=== PATIENT | female | born 1965 | race African-American/Black ===

== ENCOUNTER 2017-01-06 18:29 | Emergency (ER) | payer OTHER ==
[2017-01-06] MEDS ORDERED: CLONIDINE HCL 0.1 MG TABLET PO ONE (19:32)
[2017-01-06] MEDS ORDERED: LIDOCAINE 5% (700 MG) TRANSDERMAL ADH..PATCH TP ONE (19:32)
[2017-01-06] MEDS ORDERED: ACETAMINOPHEN 325 MG TABLET PO ONE (19:35)
--- NOTE | 2017-01-06 19:35 | ER Document Report ---
HPI - HPI Patient complains to provider of: r shoulder pain Onset: Other - 3 days Onset/Duration: Persistent Quality of pain: Sharp Pain Level: 5 Context: Patient presents complaining of right shoulder joint pain. Patient states that she has arthritis affecting this joint but she has had a flareup of pain over the past 3 days. Patient denies any shoulder injury. Patient additionally complains of mild headache that started yesterday. Patient denies any fever or head injury. Does have a history of hypertension and states that she has not been taking her medication recently. Pt denies any chest pain, dyspnea, back pain or urinary symptoms. Pt attributes her elevated blood pressure due to her shoulder joint pain. Patient states that she was told she would need surgery for her shoulder but she has not been able to miss work. Associated Symptoms: Headache, Other - shoulder pain. denies: Nonproductive cough, Productive cough Exacerbated by: Movement Relieved by: Denies Similar symptoms previously: Yes Recently seen / treated by doctor: No - ROS ROS below otherwise negative: Yes Systems Reviewed and Negative: Yes All other systems reviewed and negative - CONSTITUTIONAL Constitutional: DENIES: Fever, Chills - NEURO Neurology: REPORTS: Headache. DENIES: Weakness, Vision blurred - CARDIOVASCULAR Cardiovascular: DENIES: Chest pain - RESPIRATORY Respiratory: DENIES: Trouble Breathing, Coughing - GASTROINTESTINAL Gastrointestinal: DENIES: Abdominal Pain, Patient vomiting - MUSCULOSKELETAL Musculoskeletal: REPORTS: Extremity pain. DENIES: Back Pain, Neck Pain - DERM Skin Color: Normal Skin Problems: None Past Medical History - General Information source: Patient - Social History Smoking Status: Never Smoker Chew tobacco use (# tins/day): No Frequency of alcohol use: None Drug Abuse: None Occupation: [employer] Lives with: Alone Family History: Reviewed & Not Pertinent Patient has suicidal ideation: No Patient has homicidal ideation: No - Past Medical History Cardiac Medical History: Reports: Hx Hypertension Renal/ Medical History: Denies: Hx Peritoneal Dialysis Past Surgical History: Reports: Hx Section, Hx Gynecologic Surgery Vertical Provider Document - CONSTITUTIONAL Agree With Documented VS: Yes Exam Limitations: No Limitations General Appearance: WD/WN, No Apparent Distress - INFECTION CONTROL TRAVEL OUTSIDE OF THE [place] IN LAST 30 DAYS: No - HEENT HEENT: Atraumatic, Normocephalic, PERRLA - NECK Neck: Normal Inspection, Supple. negative: Lymphadenopathy-Left, Lymphadenopathy-Right - RESPIRATORY Respiratory: Breath Sounds Normal, No Respiratory Distress, Chest Non-Tender O2 Sat by Pulse Oximetry: 98 - CARDIOVASCULAR Cardiovascular: Regular Rate, Regular Rhythm, No Murmur Pulses: Normal: Radial - BACK Back: Abnormal Inspection - right Trapezius muscle tenderness with spasm. negative: CVA Tenderness-Right, CVA Tenderness-Left - MUSCULOSKELETAL/EXTREMETIES Musculoskeletal/Extremeties: MAEW, Tender - Right shoulder joint tenderness with passive range of motion, patient with crepitus with movement of right shoulder joint normal skin color and temperature overlying joint. No deformity or dislocation, No Edema - NEURO Level of Consciousness: Awake, Alert, Appropriate Motor/Sensory: No Motor Deficit - DERM Integumentary: Warm, Dry, No Rash Course - Re-evaluation Re-evalutation: 01/06/17 19:[address] Brown patient presentation and exam findings. Does not recommend that patient should have a CT of the head if patient is otherwise neurologically intact. Recommends pain management and good education and advising patient that to restart her blood pressure medication and recheck with her primary doctor for further evaluation. 01/06/17 20:38 Patient educated at length about importance of managing her high blood pressure. Patient advised that untreated blood pressure can lead to stroke, loss of vision, renal failure, even . Patient verbalized understanding and states that she plans to restart taking her blood pressure medication. - Vital Signs Vital signs: Temp Pulse Resp BP Pulse Ox 98.7 F 63 16 200/96 H 98 01/06/17 18:57 01/06/17 18:57 01/06/17 18:57 01/06/17 18:57 01/06/17 18:57 - Laboratory Result Diagrams: 01/06/17 19:40 01/06/17 19:40 Laboratory results interpreted by me: 01/06/17 20:38 Labs- Entire Visit 01/06/17 01/06/17 19:40 19:40 WBC 5.5 RBC 4.62 Hgb 14.4 Hct 42.9 MCV 93 MCH 31.1 MCHC 33.6 RDW 13.5 Plt Count 236 Seg Neutrophils % 52.2 Lymphocytes % 36.8 Monocytes % 8.0 Eosinophils % 2.4 Basophils % 0.6 Absolute Neutrophils 2.9 Absolute Lymphocytes 2.0 Absolute Monocytes 0.4 Absolute Eosinophils 0.1 Absolute Basophils 0.0 Sodium 141.2 Potassium 4.6 Chloride 104 Carbon Dioxide 25 Anion Gap 12 BUN 14 Creatinine 0.79 Est GFR ( Amer) > 60 Est GFR (Non-Af Amer) > 60 Glucose 86 Calcium 9.8 Discharge - Discharge Clinical Impression: Hx of essential hypertension, Arthritis Chronic shoulder pain Qualifiers: Laterality: right Qualified Code(s): M25.511 - Pain in right shoulder Trapezius muscle strain Qualifiers: Encounter type: initial encounter Laterality: right Qualified Code(s): S46.811A - Strain of other muscles, fascia and tendons at shoulder and upper arm level, right arm, initial encounter Condition: Stable Disposition: HOME, SELF-CARE Instructions: Arthritis ([facility]), High Blood Pressure, Requiring Treatment ([facility]), Oral Narcotic Medication ([facility]), Muscle Relaxers ([facility]), Muscle Strain ([facility]) Additional Instructions: Return immediately for any new or worsening symptoms Followup with your primary care provider, call tomorrow to make a followup appointment Follow-up with orthopedic doctor for further evaluation of chronic shoulder joint pain Take the Percocet or Tylenol No. 3, do not take both medications together Pressure was extremely elevated tonight. You will likely need to restart your blood pressure medication. Recheck with your primary doctor to have your blood pressure reevaluated. Prescriptions: Cyclobenzaprine HCl [Flexeril 10 Mg Tablet] 10 mg PO TID #15 tablet Oxycodone HCl/Acetaminophen [Percocet 5-325 mg Tablet] 1 tab PO ASDIR PRN #8 tablet PRN Reason: Forms: Return to Work Referrals: ADONIS HAM MD [Primary Care Provider] - Follow up as needed
[2017-01-06 19:51] LABS: ABSOLUTE EOSINOPHILS # (AUTO) 0.1 10^3/uL (0.0-0.6); ABSOLUTE MONOCYTES (AUTO) 0.4 10^3/uL (0.1-1.4); ABSOLUTE NEUT (AUTO) 2.9 10^3/uL (1.7-8.2); BASOPHILS % (AUTO) 0.6 % (0-2); EOSINOPHILS % (AUTO) 2.4 % (0-6); HEMATOCRIT 42.9 % (36.0-47.0); HEMOGLOBIN 14.4 g/dL (12.0-15.5); HGB HCT DIFFERENCE 0.3; LYMPHOCYTES % (AUTO) 36.8 % (13-45); MEAN CORPUSCULAR HEMOGLOBIN 31.1 pg (27.0-33.4); MEAN CORPUSCULAR HGB CONC 33.6 g/dL (32.0-36.0); MEAN CORPUSCULAR VOLUME 93 fl (80-97); RED BLOOD COUNT 4.62 10^6/uL (3.72-5.28); RED CELL DISTRIBUTION WIDTH 13.5 % (11.5-14.0); SEGMENTED NEUTROPHILS % (AUTO) 52.2 % (42-78); WHITE BLOOD COUNT 5.5 10^3/uL (4.0-10.5)
[2017-01-06 20:08] VITALS: BP 176/99
[2017-01-06 20:12] LABS: ANION GAP 12 (5-19); BLOOD UREA NITROGEN 14 mg/dL (7-20); CALCIUM 9.8 mg/dL (8.4-10.2); CARBON DIOXIDE 25 mmol/L (22-30); CHLORIDE 104 mmol/L (98-107); CREATININE RESULT 0.79 mg/dL (0.52-1.25); GLUCOSE 86 mg/dL (75-110); POTASSIUM 4.6 mmol/L (3.6-5.0); SODIUM 141.2 mmol/L (137-145)
== END 2017-01-06 20:45 | disposition home or self-care (01) ==
LOC: ER 18:29
DX: S46.811A Strain of other muscles, fascia and tendons at shoulder and upper arm level, right arm, initial encounter (principal); M25.511 Pain in right shoulder; R51 Headache; M19.90 Unspecified osteoarthritis, unspecified site; X58.XXXA Exposure to other specified factors, initial encounter; I10 Essential (primary) hypertension
CPT/HCPCS: 36415; 80048; 85025; 99283